=== PATIENT | female | born 1955 | race Two or more races ===

== ENCOUNTER 2022-02-13 14:11 | Inpatient (IN) | payer OTHER ==
[~2022-02-13] VITALS: Ht 157.5 cm; Wt 63.5 kg
[2022-02-13] MEDS ORDERED: PLAVIX75 MG (14:18)
[2022-02-13] MEDS ORDERED: CARVEDILOL3.125 MG (14:18)
[2022-02-13] MEDS ORDERED: ISOSORBIDE MONO30 M2 (14:19)
[2022-02-13] MEDS ORDERED: ECOTRIN81 MG (14:19)
[2022-02-13] MEDS ORDERED: FOLIC ACID0.8 M1 (14:19)
[2022-02-13] MEDS ORDERED: LIPITOR40 M1 (14:19)
[2022-02-13] MEDS ORDERED: FEMARA2.5 MG (14:19)
[2022-02-13] MEDS ORDERED: VITAMIN D310 MCG/11 (14:20)
[2022-02-13] MEDS ORDERED: VITAMIN B-12100 MCG (14:20)
--- NOTE | 2022-02-13 14:21 | NUR ---
SE RECIBE PTE LA CUAL LLEGA EN MABULANCIA, REFIERE TRAUMA EN CADERA RT POR CAIDA EN EL DONTAE DE GOLDEN AL RESBALAR EN EL KAMINI DE ECHAVARRIA HOGAR. SE UBICA EN AREA DE OBSERVACION.
--- NOTE | 2022-02-13 16:26 | NUR ---
PACIENTE EN ESPERA DE REALIZA CT. SE NOTIFICO CT.
--- NOTE | 2022-02-13 18:55 | NUR ---
SE REALIZA ADMINISTRACION DE TRAMADOL POR ORDEN MEDICA, SE 50MG PO
--- NOTE | 2022-02-13 20:55 | NUR ---
se administran meds kayla orden medica y se orienta sobre los mismos, pte y familiar refieren entender.
--- NOTE | 2022-02-13 20:55 | NUR ---
SE REALIZA DXT Y PRESENTA 162 mg/dl
--- NOTE | 2022-02-13 21:38 | NUR ---
PTE ALERTA,ESTABLE Y ORIENTADA.ESTA REHUSA MEDICAMENTOS LOVENOX Y PEPCID.YA QUE ESTA REFIERE QUE SE LO PUSIERON
[2022-02-16] MEDS ORDERED: HUMALOG KW100 UNIT/1 (15:12)
[2022-02-16] MEDS ORDERED: ALENDRONATE SOD70 MG (15:13)
[2022-02-16] MEDS ORDERED: METOPROLOL SUCC25 MG (15:13)
== END 2022-02-18 23:19 | disposition home or self-care (01) | DRG 536 ==
LOC: ER 14:11 → MEDJ 18:32 → MEDI 18:32
PROVIDERS: ADMIT Internal Medicine; ATTEND Internal Medicine
PROC: BW2GZZZ Computerized Tomography (CT Scan) of Pelvic Region (ICD-10-PCS; 2022-02-13)
PROC: B246ZZZ Ultrasonography of Right and Left Heart (ICD-10-PCS; 2022-02-14)
PROC: BQ30ZZZ Magnetic Resonance Imaging (MRI) of Right Hip (ICD-10-PCS; principal; 2022-02-15)
DX: S32.491A Other specified fracture of right acetabulum, initial encounter for closed fracture (principal); S32.591A Other specified fracture of right pubis, initial encounter for closed fracture; I48.91 Unspecified atrial fibrillation; I10 Essential (primary) hypertension; E11.9 Type 2 diabetes mellitus without complications; W01.0XXA Fall on same level from slipping, tripping and stumbling without subsequent striking against object, initial encounter; Y93.E1 Activity, personal bathing and showering; Y92.091 Bathroom in other non-institutional residence as the place of occurrence of the external cause; Y99.8 Other external cause status; Z20.822 Contact with and (suspected) exposure to COVID-19
CPT/HCPCS: 73725